=== PATIENT | female | born 1955 | race Caucasian/White ===

== ENCOUNTER 2017-02-15 11:45 | Outpatient (CLI) | payer BC | END 2017-02-15 11:46 | disposition home or self-care (01) | LOC: BICRAD 11:45 | PROVIDERS: ATTEND Internal Medicine | DX: R05 Cough (principal); R06.2 Wheezing; I77.810 Thoracic aortic ectasia | CPT/HCPCS: 71046 ==

== ENCOUNTER 2022-09-06 10:54 | Outpatient (CLI) | payer BC | END 2022-09-06 10:55 | disposition home or self-care (01) | LOC: BICMAMMO 10:54 | PROVIDERS: ATTEND Obstetrics & Gynecology | DX: Z12.31 Encounter for screening mammogram for malignant neoplasm of breast (principal); Z80.3 Family history of malignant neoplasm of breast | CPT/HCPCS: 77063; 77067 ==